=== PATIENT | male | born 2000 | race Hispanic/Latino ===

== ENCOUNTER 2022-04-11 17:27 | Emergency (ER) | payer OTHER ==
[~2022-04-11] VITALS: Ht 172.7 cm; Wt 64.8 kg
[2022-04-11] MEDS ORDERED: ULTRAM50 MG PO (20:17)
== END 2022-04-11 20:37 | disposition home or self-care (01) ==
LOC: ED 17:27
DX: S92.415A Nondisplaced fracture of proximal phalanx of left great toe, initial encounter for closed fracture (principal); S01.01XA Laceration without foreign body of scalp, initial encounter; S39.012A Strain of muscle, fascia and tendon of lower back, initial encounter; Z88.0 Allergy status to penicillin
CPT/HCPCS: 36415; 70450; 71046; 72040; 72100; 73552; 73630; 80053; 81001; 82553; 83690; 85025; 90471; 90715; 99284-25

== ENCOUNTER 2022-07-05 14:41 | Emergency (ER) | payer OTHER ==
[~2022-07-05] VITALS: Ht 172.7 cm; Wt 63.9 kg
[~2022-07-05 14:41] MED LIST: ULTRAM50 MG PO
[2022-07-05] MEDS ORDERED: HYDROCODON-ACE1 EA11 PO (15:26)
== END 2022-07-05 15:34 | disposition home or self-care (01) ==
LOC: ED 14:41
DX: S83.92XA Sprain of unspecified site of left knee, initial encounter (principal); W50.0XXA Accidental hit or strike by another person, initial encounter; Z88.0 Allergy status to penicillin; Z88.8 Allergy status to other drugs, medicaments and biological substances
CPT/HCPCS: 99283